=== PATIENT | female | born 1985 | race Hispanic/Latino ===

== ENCOUNTER 2018-04-02 12:58 | Emergency (ER) | payer OTHER ==
[~2018-04-02] VITALS: Ht 139.7 cm; Wt 43.2 kg
[~2018-04-02 12:58] MED LIST: AMPICILLIN500 MG PO; CIPRO500 MG OR; CLARITHROMYC500 M2 PO; OMEPRAZOLE20 M2 PO; ULTRAM50 M1 PO
[2018-04-02 13:52] LABS: HEMATOCRIT 36.3 % (37.0-47.0); HEMOGLOBIN 11.6 g/dl (12.0-16.0); IMMATURE GRANULOCYTES 1.5 % (0.0-1.0); MEAN CELL VOLUME 89.6 fL CALC (80.0-100.0); MEAN CORPUSCULAR HGB 28.6 pG CALC (26.0-32.0); NEUT# 9.98 thou/uL (2.00-7.15); RED BLOOD COUNT 4.05 mill/uL (4.20-5.60); RED CELL DISTRI WIDTH 12.6 % (11.5-15.5)
[2018-04-02 14:09] LABS: ALBUMIN 4.3 g/dL (3.2-5.0); ALKALINE PHOSPHATASE 78 u/l (38-126); ANION GAP 15 (6-22 (CALC)); BILIRUBIN, TOTAL 0.6 mg/dL (0.0-1.4); BUN 11 mg/dL (7-17); BUN/CREATININE RATIO 24 (12-20 (CALC)); CARBON DIOXIDE 23 mmol/l (22-30); CHLORIDE 105 mmol/l (95-108); CREATININE 0.4 mg/dL (0.5-1.0); GFR > 60 ML/MIN (>=60 (CALC)); GFR FOR AFR.AMER. > 60 ML/MIN (>=60 (CALC)); LIPASE 80 u/l (23-300); POTASSIUM 3.9 mmol/l (3.5-5.1); SGOT/AST 18 u/l (14-36); SGPT/ALT 35 u/l (9-52); SODIUM 140 mmol/l (137-146); TOTAL PROTEIN 7.8 g/dL (6.3-8.2)
[2018-04-02 16:38] VITALS: BP 130/78
[2018-04-02 17:20] LABS: URINE BILIRUBIN - DIPSTICK NEGATIVE (NEGATIVE); URINE BLOOD DIPSTICK NEGATIVE (NEGATIVE); URINE COLOR YELLOW; URINE GLUCOSE - DIPSTICK NEGATIVE (NEGATIVE); URINE KETONE TRACE mg/dL (NEGATIVE); URINE LEUK ESTERASE NEGATIVE (NEGATIVE); URINE NITRITE - DIPSTICK NEGATIVE (Negative); URINE PH 6.5 (4.5-8.0); URINE PROTEIN - DIPSTICK NEGATIVE (NEG-TRACE); URINE UROBILINOGEN - DIPSTICK 0.2 E.U./dL (0.2)
[2018-04-02 17:23] LABS: URINE CLARITY CLEAR
== END 2018-04-02 16:38 | disposition short-term general hospital (02) | DRG 446 ==
LOC: ED 12:58
PROVIDERS: Family Medicine
DX: K81.0 Acute cholecystitis (principal); R10.13 Epigastric pain; R10.11 Right upper quadrant pain
CPT/HCPCS: Q9967

== ENCOUNTER 2020-04-14 16:54 | Inpatient (IN) | payer SELFPAY ==
[~2020-04-14] VITALS: Ht 139.7 cm; Wt 45.0 kg
--- NOTE | 2020-04-14 16:54 | NUR ---
PT TO ROOM VIA WC WITH TACHYHPNEA. O2 SAT 100% ON RA
--- NOTE | 2020-04-14 17:50 | NUR ---
PT MEDICATED PER MAR FOR GENERALIZED PAIN; MONITORING DEVICES IN PLACE; VSS; WILL CONTINUE TO MONITOR
[2020-04-14 18:06] LABS: ANION GAP 14 (6-22 (CALC)); BUN 13 mg/dL (7-17); BUN/CREATININE RATIO 29 (12-20 (CALC)); CARBON DIOXIDE 22 mmol/l (22-30); CHLORIDE 105 mmol/l (95-108); CREATININE 0.4 mg/dL (0.5-1.0); GFR > 60 ML/MIN (>=60 (CALC)); GFR FOR AFR.AMER. > 60 ML/MIN (>=60 (CALC)); POTASSIUM 4.4 mmol/l (3.5-5.1); SODIUM 136 mmol/l (137-146)
[2020-04-14 18:11] LABS: IMMATURE GRANULOCYTES 0.6 % (0.0-5.0); MEAN CELL VOLUME 73.5 fL CALC (80.0-100.0); MEAN CORPUSCULAR HGB 21.3 pG CALC (26.0-32.0); NEUT# 3.58 thou/uL (2.00-7.15); RED BLOOD COUNT 4.22 mill/uL (4.20-5.60)
[2020-04-14 18:23] LABS: BETA-HCG, QUANT(RESULT NUMBER) <2 mIU/mL
--- NOTE | 2020-04-14 18:40 | NUR ---
PT RESTING ON STRETCHER; NO S/S OF DISTRESS NOTED; MONITORING DEVICES IN PLACE; VSS; CALL LIGHT WITHIN REACH; WILL CONTINUE TO MONITOR
--- NOTE | 2020-04-14 18:54 | NUR ---
REPORT GIVEN TO ANETTE ASHTON
[2020-04-14] MEDS ORDERED: AMOX/K CLAV875 M1 PO ×2 (19:27)
[2020-04-14] MEDS ORDERED: ZPAK PO ×2 (19:27)
--- NOTE | 2020-04-14 22:26 | NUR ---
Admission Note Report Given to: NICK Transported by: Wheelchair X Stretcher Transported with: X Nurse Transporter X Patent IV O2 Tier And Detonator Location: ICU X [facility]
--- NOTE | 2020-04-14 22:40 | NUR ---
PT ARRIVES TO UNIT VIA WC ACCOMPANIED BY Dottie JEFF RN. PT ADMITTED TO ROOM 291 PUI W/ AIRBORNE/CONTACT PRECAUTIONS PENDING COVID-19 SWAB RESULTS. PT AMBULATORY TO BED. GAIT IS NOTED TO BE STEADY AND BALANCED. ORIENTED TO ROOM, LIGHT/TV/CALL CARTER SYSTEM, AND UNIT.
[2020-04-14 22:55] VITALS: BP 127/78
--- NOTE | 2020-04-15 00:15 | NUR ---
UPON ENTERING ROOM PT FOUND TO BE RESTING IN BED. APPEARS COMFORTABLE AND IN NO APPARENT DISTRESS. RESPIRATIONS ARE REGULAR AND UNLABORED. PHYSICAL ASSESMENT COMPLETE AT THIS TIME. SCHEDULED MEDS ADMINISTERED, SEE E-MAR. PLAN OF CARE REVIEWED, PT DENIES QUESTIONS, VERBALIZES UNDERSTANDING. DENIES NEEDS AT THIS TIME. ITEMS WITHIN REACH, BED LOCKED IN LOW POSITION W/ BEDRAILS UP X2. CALL CARTER WITHIN REACH, AGREES TO CALL PRN.
[2020-04-15 04:11] VITALS: BP 102/50
--- NOTE | 2020-04-15 05:44 | NUR ---
PHYSICAL ASSESMENT UNCHANGED FROM BEGINING OF SHIFT BASELINE. PT AFEBRILE, HEMODYNAMICS STABLE. DENIES NEEDS AT THIS TIME. ITEMS REMAIN WITHIN REACH. BED REMAINS LOCKED IN LOW POSITION W/ BEDRAILS UPX2. CALL CARTER REMAINS WITHIN REACH, AGREES TO CALL PRN.
[2020-04-15 07:30] VITALS: BP 100/60
--- NOTE | 2020-04-15 07:30 | NUR ---
PT SITTING IN BED. A&O X3. NON PRODUCTVE COUGH NOTED. PT REPORTS TO FEEL SOB WHEN SHE COUGHS. REPORTS TO HAVE HAD CHEST DISCOMFORT AND BODY ACHES X7 DAYS. NO OTHER NEEDS AT THIS TIME. ASSESSMENT COMPLETED. DISCUSSED POC. CALL LIGHT IN REACH. CONTINUE TO MONITOR.
--- NOTE | 2020-04-15 10:30 | NUR ---
O2 VIA NC @ 2L PLACED PT REPORTED FEELING SOB AFTER COUGHING.
--- NOTE | 2020-04-15 10:40 | NUR ---
PT FOUND TO BE SITTING ON THE SIDE OF THE BED IN TRIPOD POSITION. PT REPORTED THAT THIS WAS THE WAY SHE WAS ABLE TO BREATHE BETTER. BULMARO CHERRY NOTIFIED. PER DILIP STAT CXR TO BE OBTAINED
--- NOTE | 2020-04-15 10:50 | NUR ---
PT TAKEN TO RADIOLOGY, PT STABLE DURING TRANSPORT
[2020-04-15 11:20] VITALS: BP 104/66
--- NOTE | 2020-04-15 12:40 | NUR ---
PT REPORTS TO BE FEELING BETTER. RESP ARE NOW EVEN AND UNLABORED. CALL LIGHT IN REACH. CONTINUE TO MONITOR.
[2020-04-15 14:55] VITALS: BP 102/72
--- NOTE | 2020-04-15 17:52 | NUR ---
PT SITTING IN BED EATING SUPPER. NO DISTRESS OR NEEDS AT THIS TIME. CALL LIGHT IN REACH. CONTINUE TO MONITOR.
[2020-04-15 19:00] VITALS: BP 117/66
--- NOTE | 2020-04-15 20:30 | NUR ---
UPON ENTERING ROOM PT FOUND TO BE RESTING IN BED. APPEARS COMFORTABLE AND IN NO APPARENT DISTRESS. RESPIRATIONS ARE REGULAR AND UNLABORED. PHYSICAL ASSESMENT COMPLETE AT THIS TIME. SCHEDULED MED(S) ADMINISTERED, SEE E-MAR. PLAN OF CARE REVIEWED, PT DENIES QUESTIONS, VERBALIZES UNDERSTANDING. DENIES FURTHER AT THIS TIME. ITEMS WITHIN REACH, BED LOCKED IN LOW POSITION W/ BEDRAILS UP X2. CALL CARTER WITHIN REACH, AGREES TO CALL PRN.
[2020-04-16 00:10] VITALS: BP 108/65
--- NOTE | 2020-04-16 01:00 | NUR ---
PT APPEARS TO BE SLEEPING COMFORTABLY, NO APPARENT DISTRESS, RESPIRATIONS REGULAR AND UNLABORED. CALL CARTER REMAINS WITHIN REACH.
[2020-04-16 03:45] VITALS: BP 96/60
--- NOTE | 2020-04-16 05:15 | NUR ---
SCHEDULED AM LABS DRAWN.
[2020-04-16 05:33] LABS: HEMATOCRIT 27.4 % (37.0-47.0); HEMOGLOBIN 8.1 g/dl (12.0-16.0); IMMATURE GRANULOCYTES 0.5 % (0.0-5.0); MEAN CELL VOLUME 72.5 fL CALC (80.0-100.0); MEAN CORPUSCULAR HGB 21.4 pG CALC (26.0-32.0); MEAN CORPUSCULAR HGB CONC 29.6 g/dL CAL (32.0-36.0); NEUT# 5.91 thou/uL (2.00-7.15); RED BLOOD COUNT 3.78 mill/uL (4.20-5.60); RED CELL DISTRI WIDTH 17.2 % (11.5-15.5)
[2020-04-16 05:56] LABS: ALBUMIN 3.7 g/dL (3.2-5.0); ALKALINE PHOSPHATASE 79 u/l (38-126); ANION GAP 10 (6-22 (CALC)); BILIRUBIN, TOTAL 0.4 mg/dL (0.0-1.4); BUN 15 mg/dL (7-17); BUN/CREATININE RATIO 35 (12-20 (CALC)); C-REACTIVE PROTEIN 5.8 mg/dL (0-0.9); CARBON DIOXIDE 24 mmol/l (22-30); CHLORIDE 107 mmol/l (95-108); CREATININE 0.4 mg/dL (0.5-1.0); GFR > 60 ML/MIN (>=60 (CALC)); GFR FOR AFR.AMER. > 60 ML/MIN (>=60 (CALC)); POTASSIUM 3.7 mmol/l (3.5-5.1); SGOT/AST 31 u/l (14-36); SODIUM 137 mmol/l (137-146); TOTAL PROTEIN 6.6 g/dL (6.3-8.2)
[2020-04-16 08:36] VITALS: BP 115/60
--- NOTE | 2020-04-16 08:36 | NUR ---
PT SITTING IN BED. A&O X3. PT REPORTS TO BE FEELING BETTER. STATES THAT O2 VIA NC HAS NOT BEEN IN PLACE THROUGHOUT THE NIGHT BUT DENIES ANY SOB. PT STATES THAT SHE WANTS TO GO HOME TODAY, SLIGHTLY ANXIOUS. ASSESSMENT COMPLETED. DISCUSSED POC. CALL LIGHT IN REACH. CONTINUE TO MONITOR.
[2020-04-16 10:40] VITALS: BP 100/62
[2020-04-16] MEDS ORDERED: FERR SULFATE325 MG PO (13:35)
[2020-04-16] MEDS ORDERED: ZITHROMAX250 MG PO (13:35)
--- NOTE | 2020-04-16 14:06 | NUR ---
PT SITTING IN BED. NO DISTRESS OR NEEDS AT THIS TIME. CALL LIGHT IN REACH. CONTINUE TO MONITOR.
--- NOTE | 2020-04-16 15:53 | NUR ---
D/C INSTRUCTIONS GIVEN TO PT. PT VERBALIZED UNDERSTANDING. IV INTACT UPON REMOVAL
--- NOTE | 2020-04-16 16:18 | NUR ---
Discharge instructions given. Patient verbalizes understanding of same. Discharged in stable condition ambulatory to home accompanied by staff. All belongings sent with pt.
== END 2020-04-16 16:18 | disposition home or self-care (01) | DRG 177 ==
LOC: ED 16:54 → ED-I 19:45 → ED 19:59 → ED-I 20:00 → MS2 20:56
PROVIDERS: Family Medicine; ADMIT Internal Medicine; ATTEND Internal Medicine
DX: U07.1 COVID-19 (principal); J12.89 Other viral pneumonia; J93.83 Other pneumothorax
CPT/HCPCS: J1650; J1756; Q9967

== ENCOUNTER 2020-10-01 13:10 | Emergency (ER) | payer SELFPAY ==
[~2020-10-01] VITALS: Ht 139.7 cm; Wt 45.5 kg
[~2020-10-01 13:10] MED LIST changes: +AMOX/K CLAV875 M1 PO; +FERR SULFATE325 MG PO; +ZITHROMAX250 MG PO; +ZPAK PO
[2020-10-01 13:58] LABS: HEMATOCRIT 28.5 % (37.0-47.0); HEMOGLOBIN 8.8 g/dl (12.0-16.0); IMMATURE GRANULOCYTES 0.8 % (0.0-5.0); MEAN CORPUSCULAR HGB 24.5 pG CALC (26.0-32.0); MEAN CORPUSCULAR HGB CONC 30.9 g/dL CAL (32.0-36.0); NEUT# 9.65 thou/uL (2.00-7.15); RED BLOOD COUNT 3.59 mill/uL (4.20-5.60); RED CELL DISTRI WIDTH 15.8 % (11.5-15.5)
[2020-10-01 14:02] LABS: MEAN CELL VOLUME 79.4 fL CALC (80.0-100.0)
[2020-10-01 14:08] LABS: URINE BILIRUBIN - DIPSTICK NEGATIVE (NEGATIVE); URINE BLOOD DIPSTICK LARGE (NEGATIVE); URINE COLOR YELLOW; URINE GLUCOSE - DIPSTICK NEGATIVE (NEGATIVE); URINE KETONE NEGATIVE (NEGATIVE); URINE LEUK ESTERASE NEGATIVE (NEGATIVE); URINE NITRITE - DIPSTICK NEGATIVE (Negative); URINE PROTEIN - DIPSTICK NEGATIVE (NEG-TRACE); URINE SPECIFIC GRAVITY >=1.030; URINE UROBILINOGEN - DIPSTICK 0.2 E.U./dL (0.2)
[2020-10-01 14:18] LABS: ALBUMIN 3.8 g/dL (3.2-5.0); ALKALINE PHOSPHATASE 79 u/l (38-126); ANION GAP 11 (6-22 (CALC)); BILIRUBIN, TOTAL 0.4 mg/dL (0.0-1.4); BUN 10 mg/dL (7-17); BUN/CREATININE RATIO 24 (12-20 (CALC)); CARBON DIOXIDE 24 mmol/l (22-30); CHLORIDE 107 mmol/l (95-108); CREATININE 0.4 mg/dL (0.5-1.0); GFR > 60 ML/MIN (>=60 (CALC)); GFR FOR AFR.AMER. > 60 ML/MIN (>=60 (CALC)); POTASSIUM 3.5 mmol/l (3.5-5.1); SGOT/AST 21 u/l (14-36); SODIUM 138 mmol/l (137-146); TOTAL PROTEIN 7.6 g/dL (6.3-8.2)
[2020-10-01 14:19] LABS: URINE AMORPH SEDIMENT MANY hpf (NONE-FEW); URINE SQUAMOUS EPITHELIAL CELL FEW EPI/hpf (0-FEW); URINE WBC 0-2 WBC/hpf (0-5)
[2020-10-01 14:59] VITALS: BP 114/75
== END 2020-10-01 15:05 | disposition short-term general hospital (02) | DRG 833 ==
LOC: ED 13:10
PROVIDERS: Emergency Medicine
DX: O60.02 Preterm labor without delivery, second trimester (principal); O34.219 Maternal care for unspecified type scar from previous cesarean delivery; N85.8 Other specified noninflammatory disorders of uterus; Z3A.20 20 weeks gestation of pregnancy

== ENCOUNTER 2020-11-18 00:53 | Emergency (ER) | payer MEDICAID ==
[~2020-11-18] VITALS: Ht 144.8 cm; Wt 50.0 kg
[2020-11-18 02:57] LABS: IMMATURE GRANULOCYTES 0.2 % (0.0-5.0); MEAN CORPUSCULAR HGB 27.4 pG CALC (26.0-32.0); MEAN CORPUSCULAR HGB CONC 31.6 g/dL CAL (32.0-36.0); NEUT# 4.42 thou/uL (2.00-7.15); RED BLOOD COUNT 4.74 mill/uL (4.20-5.60); RED CELL DISTRI WIDTH 16.2 % (11.5-15.5)
[2020-11-18 02:59] LABS: HEMATOCRIT 41.2 % (37.0-47.0); MEAN CELL VOLUME 86.9 fL CALC (80.0-100.0)
[2020-11-18 03:03] LABS: URINE BILIRUBIN - DIPSTICK NEGATIVE (NEGATIVE); URINE BLOOD DIPSTICK NEGATIVE (NEGATIVE); URINE COLOR YELLOW; URINE GLUCOSE - DIPSTICK NEGATIVE (NEGATIVE); URINE KETONE >=80 mg/dL (NEGATIVE); URINE LEUK ESTERASE NEGATIVE (NEGATIVE); URINE NITRITE - DIPSTICK NEGATIVE (Negative); URINE PH 8.5 (4.5-8.0); URINE PROTEIN - DIPSTICK TRACE mg/dL (NEG-TRACE); URINE SPECIFIC GRAVITY 1.015; URINE UROBILINOGEN - DIPSTICK 0.2 E.U./dL (0.2)
[2020-11-18 03:15] LABS: ALKALINE PHOSPHATASE 85 u/l (38-126); AMYLASE 96 u/l (30-110); BUN 6 mg/dL (7-17); BUN/CREATININE RATIO 13 (12-20 (CALC)); CHLORIDE 100 mmol/l (95-108); CREATININE 0.5 mg/dL (0.5-1.0); GFR > 60 ML/MIN (>=60 (CALC)); GFR FOR AFR.AMER. > 60 ML/MIN (>=60 (CALC)); LIPASE 72 u/l (23-300); POTASSIUM 3.5 mmol/l (3.5-5.1); SGOT/AST 28 u/l (14-36); SODIUM 139 mmol/l (137-146); TOTAL PROTEIN 8.6 g/dL (6.3-8.2)
[2020-11-18 03:18] LABS: ALBUMIN 4.9 g/dL (3.2-5.0); ANION GAP 14 (6-22 (CALC)); BILIRUBIN, TOTAL 0.7 mg/dL (0.0-1.4); CARBON DIOXIDE 29 mmol/l (22-30)
[2020-11-18] MEDS ORDERED: ZOFRAN4 MG/TAB PO (06:55)
[2020-11-18 07:05] VITALS: BP 143/85
== END 2020-11-18 07:11 | disposition home or self-care (01) ==
LOC: ED 00:53
PROVIDERS: Emergency Medicine
DX: R11.2 Nausea with vomiting, unspecified (principal); Z20.822 Contact with and (suspected) exposure to COVID-19
CPT/HCPCS: Q9967; S0164